=== PATIENT | female | born 2005 | race Caucasian/White ===

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

== ENCOUNTER → 2023-06-17 | Outpatient (REF) | payer OTHER, MEDICAID ==
[~2023-06-17] MED LIST: HYDR-3363 PO; HYDR50TA70 PO; LATU40TA2 PO; TRI-1TAB PO; medical marijuana
== END ==
LOC: M SFHCDERM 17:17
PROVIDERS: ATTEND Nurse Practitioner Family
DX: L30.4 Erythema intertrigo (principal)